=== PATIENT | male | born 1975 | race Caucasian/White ===

== ENCOUNTER 2019-05-29 12:38 | Emergency (ER) | payer BC, SELFPAY ==
[2019-05-29 12:55] VITALS: BP 137/87; PULSE 69; RESP 16; TEMP 36.4; O2SAT 100
--- NOTE | 2019-05-29 12:59 | ED.ABDPAIN ---
HPI - Abdominal Pain General Chief Complaint: Abdominal Pain Stated Complaint: Abd pain Time Seen by Provider: 05/29/19 12:59 Source: patient and RN notes reviewed Mode of arrival: ambulatory Limitations: no limitations History of Present Illness HPI narrative: 43 male presents with concern for right lower quadrant abdominal pain for 1 week. Reports the pain seems to be getting worse and radiates around to his side, hip and lower back. Reports sensitivity with his close touching his skin. Denies any rash. Denies nausea, vomiting, diarrhea, decreased appetite, general malaise, constipation, fever. Denies dysuria, hematuria, frequency, urgency, abnormal penile discharge. Denies testicular pain. Reports recent colonoscopy that identified diverticula. MD elicited complaint: abdominal pain Related Data Home Medications Medication Instructions Recorded Confirmed No Home Medications 05/29/19 05/29/19 Allergies Allergy/AdvReac Type Severity Reaction Status Date / Time Penicillins Allergy Mild Unverified 10/26/09 11:15 TRIPLE ANTIBIOTIC CREAM Allergy Mild Uncoded 04/02/08 10:15 Review of Systems Review of Systems: Narrative: CONSTITUTIONAL: Denies malaise, chills, sweats, or fever. EYES: Denies visual changes, redness, or discharge. ENT: Denies rhinorrhea, congestion, sinus pain, otalgia or sore throat. CARDIOVASCULAR: Denies chest pain, palpitations RESPIRATORY: Denies cough or dyspnea. GASTROINTESTINAL: Reports right lower abdominal pain. Denies constipation, nausea, vomiting, diarrhea, bloody, or mucous stools. GENITOURINARY: Denies dysuria, frequency, urgency, or hematuria. SKIN: Denies rash or itching. MUSCULOSKELETAL: Reports right low back pain. Denies joint pain, or myalgia. NEUROLOGIC: Denies headache. All systems reviewed & are unremarkable except as noted in HPI and below PMFSH Comments At time of signature, agree with nursing past medical, surgical, social and family history. There is no relevant family history pertinent to the presenting complaint Exam Narrative: Exam Narrative: GENERAL: Well-appearing, well-nourished, and in no acute distress. HEAD: Normocephalic, atraumatic. EYES: PERRLA, conjunctivae clear, and EOMI. ENT: Nares clear, turbinates pink, no rhinorrhea or epistaxis. Mucous membranes moist. Oropharynx without edema, erythema, or lesions. Tonsils not enlarged and without exudate. NECK: Supple. No lymphadenopathy CHEST: Speaks in full sentences. No respiratory distress. HEART: Regular rate and rhythm. ABDOMEN: Mild periumbilical tenderness. Soft, nondistended. No guarding, rebound tenderness, or rigid. No pulsatilla masses. Bowel sounds present in all four quadrants. No organomegaly. Negative Granado?s sign. No periumbilical tenderness. No Supra public tenderness or distension. Good femoral pulses bilaterally. No hernia noted. No scars or surface trauma. SKIN: Warm, dry, no rash. NEURO: Alert and oriented x3. PSYCH: Normal mood and affect Course Course Emergency Course: Discussed with patient limited diagnostic capability in the express care and possible further evaluation emergency department. Patient understands options, understand risks. Patient reports he will make an appointment with his primary care provider in the next 1 to 2 days, and will go to the emergency room in the meantime if symptoms worsen. Patient is aware of diagnosis, understands and agrees to treatment plan. Anticipatory guidance given. Patient agrees to follow-up as directed and is aware of reasons to seek care at the emergency department. Portions of this record may have been created with voice recognition software Vital Signs Vital signs: Vital Signs Temperature 97.6 F 05/29/19 12:55 Pulse Rate 69 05/29/19 12:55 Respiratory Rate 16 05/29/19 12:55 Blood Pressure 137/87 05/29/19 12:55 Pulse Oximetry 100 05/29/19 12:55 Temperature 97.6 F 05/29/19 12:55 Pulse Rate 69 05/29/19 12:55 Re
== END 2019-05-29 13:33 | disposition home or self-care (01) ==
PROVIDERS: Emergency Provider Nurse Practitioner; PCP Family Medicine
DX: R10.31 Right lower quadrant pain (principal)
CPT/HCPCS: 81003; 99212; G0463